=== PATIENT | female | born 1990 | race Hispanic/Latino ===

== ENCOUNTER 2018-05-21 09:05 | Emergency (ER) | payer OTHER, MEDICAID, SELFPAY ==
[2018-05-21 09:05] VITALS: BP 138/84; PULSE 100; RESP 18; TEMP 36.7; O2SAT 100; BMI 58.8
--- NOTE | 2018-05-21 10:03 | ED_ITS ---
HPI - Headache General Chief Complaint: Headache Stated Complaint: eyes swollen,neck pain Time Seen by Provider: 05/21/18 09:10 Source: patient Mode of arrival: ambulatory Limitations: no limitations History of Present Illness HPI Narrative: 28-year-old female comes to the emergency department with complaint of redness and irritation of her eyes and eyelids. Patient states that just started the last 24 hr. She has not had any vision changes. She states that the eyelids feel irritated. The eyes feel little bit discomfort but not significantly. She has not had any drainage. She has not had any sick contacts, she does have 6 children 2 of whom are in preschool. She she wears glasses but does not were contacts. Patient has also had some discomfort on the right side of her neck. Patient states that has felt a little swollen. She has not appreciated any visible swelling. She has not had any fevers, she has had a little bit of nasal congestion but very mild, no cough. She has had a mild sore throat but no swelling in the back of throat. Patient has not had any chest pain, she is not having any difficulty breathing. No GI or urinary symptoms. She has not had any rashes or skin changes. She states the pain in her neck sort of radiates down towards her shoulder. She has not had any recent trauma or injuries. Related Data Home Medications Medication Instructions Recorded Confirmed medroxyprogesterone [Depo-Provera] 150 mg IM [id number] 05/21/18 05/21/18 Previous Rx's Medication Instructions Recorded ofloxacin [Ocuflox] 1 drop EYE-BOTH Q4H 7 Days ml 05/21/18 Allergies Allergy/AdvReac Type Severity Reaction Status Date / Time No Known Drug Allergies Allergy Verified 05/21/18 09:15 Review of Systems Review of Systems All systems reviewed & are unremarkable except as noted in HPI and below Constitutional Denies chills, Denies fever(s), Reports headache(s) (occasionally on right relates to neck pain), Denies lethargy and Denies weakness Eyes Reports system reviewed and no additional complaints, except as docu, Denies blurry vision, Denies change in vision, Denies diplopia, Denies eye discharge, Reports irritation, Denies eye pain, Reports requires corrective lenses (no contacts), Denies photophobia, Denies spots in vision and Reports other ( irritation of lids.) ENT Ears, Nose, Mouth, and Throat: Denies otalgia, Denies facial pain, Reports headache(s) (occasionally on right relates to neck pain), Denies hoarseness, Reports nasal congestion (very mild), Denies neck mass, Reports neck pain, Denies nose pain, Denies disequilibrium, Denies post nasal drip, Denies sinus pain, Denies sinus pressure, Reports sore throat, Denies throat swelling and Denies tongue swelling Cardiovascular Denies chest pain, Denies pedal edema, Denies irregular heart rhythm, Denies lightheadedness, Denies palpitations, Denies dyspnea and Denies orthopnea Respiratory Denies change in phlegm color, Denies chest congestion, Denies cough and Denies dyspnea Gastrointestinal Gastrointestinal: Denies abdominal pain, Denies change in bowel habits, Denies diarrhea, Denies nausea and Denies vomiting Musculoskeletal Reports neck pain Integumentary/Breasts Denies rash Neurologic Reports headache(s) (occasionally on right relates to neck pain), Denies disequilibrium and Denies weakness Endocrine Denies palpitations Allergic/Immunologic Denies throat swelling and Denies tongue swelling PFSH Social History Smoking Status: Never smoker alcohol intake: never substance use type: does not use Exam Narrative Exam Narrative: GEN: well appearing, obese female, alert and oriented x 3, patient appears to be in mild distress. HEENT: Atraumatic, pupils are equal round reactive to light, extraocular movements are intact, nares are clear, TMs are clear with no fluid, there is no conjunctival pallor. Throat is clear without any exudates, erythema, tonsillar enlargement or uvular deviation, no cervical lymphadenopathy appreciated, no swelling of the neck or face. Nontender to palpation. General: no globe trauma Eyelids: normal inspection, very mild erythema noted along the edges although difficult to ascertain is patient has muscular bilaterally.. Conjunctiva/Sclera: Mild injection bilaterally Corneas: normal inspection. EOM: intact, no palsy/entrapment Pupils: PERRL, normal accomadation, pupil normal Anterior Chambers: normal inspection, no hypema Posterior: normal fundoscopic on bilateral exam. HEART: Regular rate and rhythm without murmur, clicks, rubs. LUNGS:Lungs clear to auscultation, no wheezes, rales, crackles, chest moves symmetrically ABD:bowel sounds normal, soft, non-tender, no guarding, rebound, rigidity, no masses noted, no hepatosplenomegaly MSCL: Non-tender, no muscle atrophy, muscles strength 5/5 upper and lower extremities, full range of motion, normal gait NEURO:CN 2-12 intact, sensation normal. Initial Vital Signs Initial Vital Signs: Vital Signs Temperature 98.1 F 05/21/18 09:05 Pulse Rate 100 H 05/21/18 09:05 Respiratory Rate 18 05/21/18 09:05 Blood Pressure 138/84 05/21/18 09:05 Pulse Oximetry 100 05/21/18 09:05 Course Vital Signs - 8 hr 05/21/18 09:05 05/21/18 10:10 Temperature 98.1 F Pulse Rate 100 H 77 Respiratory Rate 18 21 Blood Pressure 138/84 130/75 Pulse Oximetry 100 100 MDM - Headache MDM Narrative Medical decision making narrative: Discussed patient's concern for possible conjunctivitis although lower. We also talked about possible causes such as blepharitis, reaction to her makeup but with her complaint of neck pain and some very mild upper respiratory infection symptoms I suspect it may be a more viral etiology. Patient's neck does not show any signs mass, infection or other causes currently. May be musculoskeletal in origin asked her to continue Tylenol and ibuprofen she is only taking about 200 of ibuprofen with dosage so recommended to increase. We discussed signs and symptoms to watch for and reasons to return emergently. Discharge Plan Departure Patient Disposition: Home Clinical Impression: Conjunctivitis, Neck pain Discharge Date/Time: 05/21/18 10:22 Interventions: ED Discharge Assessment Last Done: 05/21/18 10:10 Instructions: DI for Blepharitis Activity Restrictions/Additional Instructions: Follow up in the next week if no improvement in your symptoms. Use eye drops as prescribed, 1 drop every 4 hr while awake for 4 times daily. Wash twice daily with warm soapy water using gentle soap such as baby shampoo. Avoid any eye makeup, mascara, eyeliner or new products around your eyes until symptoms resolve. You may take Tylenol up to a 1000 mg every 8 hr as needed for symptoms, you may also take ibuprofen 600 mg every 6 hr as needed for pain with or instead of Tylenol. Return to the emergency department for fevers greater than 100.4, rapidly worsening symptoms, decrease in vision, thick, goopy or purulent discharge from her eyes, swelling of the face or neck, new redness, lumps of the neck or throat , if you are having difficulty with breathing, muffled voice, high-pitched wheezing or other new or concerning symptoms. Prescriptions: New ofloxacin [Ocuflox] 0.3 % drops 1 drop EYE-BOTH Q4H 7 Days RF: 0 No Action medroxyprogesterone [Depo-Provera] 150 mg/mL Syringe 150 mg IM [id number] RF: 0 Referrals: Reece Santiago MD [Physician] - Nataly Vivas MD [Physician] - Olya Dumont MD [Physician] -
[2018-05-21 10:10] VITALS: BP 130/75; PULSE 77; RESP 21; O2SAT 100
== END 2018-05-21 10:22 | disposition home or self-care (01) ==
LOC: ED 10:14
PROVIDERS: Emergency Provider Emergency Medicine
DX: H10.9 Unspecified conjunctivitis (principal); M54.2 Cervicalgia
CPT/HCPCS: 99282

== ENCOUNTER 2018-10-27 18:01 | Emergency (ER) | payer OTHER, MEDICAID, SELFPAY ==
[2018-10-27 18:16] VITALS: BP 125/73; PULSE 89; RESP 24; TEMP 36.7; O2SAT 98; BMI 62.6
--- NOTE | 2018-10-27 18:51 | ED.BACK ---
HPI - Back Pain/Injury <ANGELA Bey - Last Filed: 10/27/18 21:12> General Chief Complaint: Back Pain/Injury Stated Complaint: BACK PAIN TOP MID Time Seen by Provider: 10/27/18 18:25 Source: patient Mode of arrival: ambulatory Limitations: no limitations History of Present Illness HPI Narrative: 28-year-old female with history of back spasms, presents emergency department today complaining of mid back pain that occurred while washing dishes. States pain is a sharp constant 10 out 10 that is better when she lies down and worse when she tries to stand up. Patient denies numbness or tingling in her upper or lower extremities, denies loss of bowel or bladder control, denies saddle paresthesias, no chest pain, shortness of breath, nausea, abdominal pain, changes in bowel or bladder, use use of IV drugs, or fevers or chills. MD Complaint: back pain Onset (ago): hour(s) Duration: intermittent Similar Symptoms Previously: Yes Location: thoracic spine Severity: moderate Quality: sharp Severity scale (1-10): 10 Relieving factors: supine Exacerbating factors: sitting upright Context: other Related Data Home Medications Medication Instructions Recorded Confirmed medroxyprogesterone [Depo-Provera] 150 mg IM [id number] 05/21/18 05/21/18 Previous Rx's Medication Instructions Recorded diazepam [Valium] 5 mg PO BID PRN #10 tab 10/27/18 Allergies Allergy/AdvReac Type Severity Reaction Status Date / Time No Known Drug Allergies Allergy Verified 05/21/18 09:15 Review of Systems <ANGELA Bey - Last Filed: 10/27/18 21:12> Review of Systems REVIEW OF SYSTEMS: GENERAL: Denies fever or chills. HENT: No head trauma, hearing loss or sore throat. EYES: No loss of vision, double vision, eye pain, or irritation. CARDIOVASCULAR: No chest pain or syncope. RESPIRATORY: No shortness of breath or cough. GASTROINTESTINAL: No nausea, vomiting, diarrhea, or constipation. GENITOURINARY: No flank pain or dysuria. MUSCULOSKELETAL: Patient complains of back pain, see HPI INTEGUMENTARY: No rash, lesions, or pruritus. NEURO: No numbness, tingling, memory loss, or confusion. No saddle paresthesias. PSYCH: No behavior or mood changes. PFSH <ANGELA Bey - Last Filed: 10/27/18 21:12> Medical History (Updated 10/27/18 @ 20:29 by ANGELA Bey) No significant medical problems (Acute) Social History Smoking Status: Never smoker alcohol intake: never substance use type: does not use Social History Smoking Status: Never smoker alcohol intake: never substance use type: does not use Exam <ANGELA Bey - Last Filed: 10/27/18 21:12> Initial Vital Signs Initial Vital Signs: Vital Signs Temperature 98.0 F 10/27/18 18:16 Pulse Rate 89 10/27/18 18:16 Respiratory Rate 24 10/27/18 18:16 Blood Pressure 125/73 10/27/18 18:16 Pulse Oximetry 98 10/27/18 18:16 PHYSICAL EXAMINATION: GENERAL: Obese female, well groomed, alert, and cooperative Answers questions promptly and appropriately. Vital signs noted. HENT: Normocephalic, atraumatic. EYES: Conjunctiva pink, sclera white, no periorbital swelling. NECK: Full range of motion. No tenderness to palpation. CHEST: Normal to inspection and without deformities. CARDIOVASCULAR: Heart rate difficult to auscultate due to body habitus however S1 and S2 sounds normal. Regular rate and rhythm. No pedal edema. RESPIRATORY: Normal respiratory rate, trachea midline, airway patent. No stridor, nasal flaring or accessory muscle use. Lungs are clear in all kaye without wheeze, rhonchi, or crackles. MUSCULOSKELETAL: Normal gait and coordination. Equal tone and mass bilaterally. Tenderness around mid thoracic paraspinal muscles with deep palpation. No bony tenderness. No bruising or erythema or swelling. EXTREMITIES: CMS intact. Full range of motion and 5/5 strength to upper and lower extremities, no sensory deficit to light touch on upper or lower extremities. SKIN: Warm, dry, soft, appropriate color for ethnicity. No lesions, rashes, or wounds. NEURO: Alert and Oriented X 3. Good coordination. No ataxia, or sensory deficits, or cognitive issues. PSYCH: Appropriate affect and mood. <Riddhi Catherine DO - Last Filed: 10/28/18 04:16> Initial Vital Signs Initial Vital Signs: Vital Signs Temperature 98.0 F 10/27/18 18:16 Pulse Rate 89 10/27/18 18:16 Respiratory Rate 24 10/27/18 18:16 Blood Pressure 125/73 10/27/18 18:16 Pulse Oximetry 98 10/27/18 18:16 Course <ANGELA Bey - Last Filed: 10/27/18 21:12> Orders Ordered: Discontinued Medications Diazepam (Valium) 5 mg PO NOW ONE Stop: 10/27/18 18:58 Last Admin: 10/27/18 19:47 Dose: 5 mg Ketorolac Tromethamine (Toradol) 30 mg IM NOW ONE Stop: 10/27/18 18:58 Last Admin: 10/27/18 19:46 Dose: 30 mg Reevaluation(s) Reevaluation #1: Patient states pain decreased but has not completely resolved after medication administration, discussed with patient about possible PT and appropriate follow-up. Patient states she has a ride home prescription meds were given. Consultations Consultation #1: Patient staffed with Dr. Catherine. Vital Signs - 8 hr 10/27/18 18:16 10/27/18 19:00 10/27/18 20:00 Temperature 98.0 F Pulse Rate 89 65 70 Respiratory Rate 24 23 15 Blood Pressure 125/73 Blood Pressure [Left Arm] 116/48 L 114/47 L Pulse Oximetry 98 100 100 <Riddhi Catherine DO - Last Filed: 10/28/18 04:16> Orders Ordered: Discontinued Medications Diazepam (Valium) 5 mg PO NOW ONE Stop: 10/27/18 18:58 Last Admin: 10/27/18 19:47 Dose: 5 mg Ketorolac Tromethamine (Toradol) 30 mg IM NOW ONE Stop: 10/27/18 18:58 Last Admin: 10/27/18 19:46 Dose: 30 mg Vital Signs - 8 hr 10/27/18 18:16 10/27/18 19:00 10/27/18 20:00 Temperature 98.0 F Pulse Rate 89 65 70 Respiratory Rate 24 23 15 Blood Pressure 125/73 Blood Pressure [Left Arm] 116/48 L 114/47 L Pulse Oximetry 98 100 100 MDM - Back Pain/Injury <ANGELA Bey - Last Filed: 10/27/18 21:12> Medical Records Attestation: I reviewed the patient's medical records. Lab Data Attestation: I reviewed the patient's lab results. ECG Data Attestation: I personally reviewed and interpreted this ECG as follows: [facility] Narrative Medical decision making narrative: I suspect patient's symptoms are most likely caused by muscle spasms due to exam is and how the pain presented, as well as response to medications. Less likely fracture due to lack of trauma. Less likely cardiac in nature due to negative exam and lack of other symptoms, as well as pain is reproducible on palpation. Discussed follow-up with patient, discussed weight loss and possible referral for PT. Strict return precautions given. Discharge Plan Departure Patient Disposition: Home Clinical Impression: Spasm of thoracic back muscle Discharge Date/Time: 10/27/18 20:30 Interventions: ED Discharge Assessment Last Done: 10/27/18 20:26 Instructions: DI for Back Spasm Activity Restrictions/Additional Instructions: Thank you for entrusting me with your care today. As discussed, I believe her symptoms are caused from a back spasm. Prescribed a medication to help relax the muscles, this medication can be sedating so do not drive while using this. Please follow up with her primary care provider in the next few weeks to discuss further testing if needed and or physical therapy if pain persists. Return to emergency department if he develops syncope, chest pain, shortness of breath, fevers, confusion or severe abdominal pain. Prescriptions: New diazepam [Valium] 5 mg tablet 5 mg PO BID PRN (Reason: Back spasms) Qty: 10 RF: 0 No Action medroxyprogesterone [Depo-Provera] 150 mg/mL Syringe 150 mg IM [id number] RF: 0 <Riddhi Catherine DO - Last Filed: 10/28/18 04:16> Cosign ED Attending Xiomara Attestation: I was immediately available in the department for consultation. Documentation has been reviewed. I agree with assessment and plan.
[2018-10-27 19:00] VITALS: BP 116/48; PULSE 65; RESP 23; O2SAT 100
[2018-10-27] MEDS: KETOROLAC 60 MG/2 ML VIAL 30 MG IM (19:46)
[2018-10-27] MEDS: diazePAM 5 MG TABLET PO (19:47)
[2018-10-27 20:00] VITALS: BP 114/47; PULSE 70; RESP 15; O2SAT 100
== END 2018-10-27 20:30 | disposition home or self-care (01) ==
PROVIDERS: Emergency Provider Nurse Practitioner
DX: M62.830 Muscle spasm of back (principal)
CPT/HCPCS: 96372; 99282; 99283; 99284; J1885